=== PATIENT | female | born 1960 | race Hispanic/Latino ===

== ENCOUNTER 2022-05-16 14:47 | Outpatient (CLI) | payer BC | END 2022-05-16 14:48 | disposition home or self-care (01) | LOC: CSHMAMMO 14:47 | PROVIDERS: ATTEND Family Medicine | DX: Z13.820 Encounter for screening for osteoporosis (principal); M85.89 Other specified disorders of bone density and structure, multiple sites; Z78.0 Asymptomatic menopausal state | CPT/HCPCS: 77080 ==